=== PATIENT | male | born 1985 | race Two or more races ===

== ENCOUNTER 2020-09-29 16:24 | Emergency (ER) | payer MEDICAID ==
[~2020-09-29] VITALS: Ht 175.3 cm; Wt 65.0 kg
[2020-09-29 17:50] VITALS: BP 118/71
[2020-10-02 04:09] LABS: NEISSERIA GONORRHOEAE NAA Negative (Negative)
[2020-10-02 05:10] LABS: HIV SCREEN 4G Non Reactive (Non Reactive)
== END 2020-09-29 18:18 | disposition home or self-care (01) ==
LOC: ER 16:24
DX: Z20.2 Contact with and (suspected) exposure to infections with a predominantly sexual mode of transmission (principal)
CPT/HCPCS: 87389; 87491; 87591; 99281